=== PATIENT | female | born 1955 | race Caucasian/White ===

== ENCOUNTER → 2021-01-15 | Outpatient (CLI) | payer MEDICARE ==
[~2021-01-15] MED LIST: ADVIL200 MG PO; NORCO 325 MG-51 TAB PO; TRUSOPT OCUMETE10 ML OD; XALATAN EYE DROPS OU
== END ==
LOC: MC.RAD 07:00
DX: N63.10 Unspecified lump in the right breast, unspecified quadrant (principal); Q85.00 Neurofibromatosis, unspecified

== ENCOUNTER → 2021-01-30 | Outpatient (CLI) | payer MEDICARE | LOC: MC.RAD 12:43 | DX: N63.10 Unspecified lump in the right breast, unspecified quadrant (principal) ==

== ENCOUNTER 2021-03-26 07:26 | Day surgery (SDC) | payer MEDICARE ==
[~2021-03-26] VITALS: Ht 165.1 cm; Wt 86.8 kg
[2021-03-26 07:55] VITALS: BP 134/69; PULSE 57; TEMP 97.9
[2021-03-26] MEDS ORDERED: TRUSOPT OCUMETE10 ML OD (07:57)
[2021-03-26] MEDS ORDERED: ADVIL200 MG PO (08:00)
[2021-03-26] MEDS ORDERED: XALATAN EYE DROPS OU (08:00)
[2021-03-26 10:26] VITALS: BP 139/76; PULSE 77
--- NOTE | 2021-03-26 10:26 | NUR ---
Patient returns to room 2 per cart from surgery accompanied by Jose G SILVA and Aaron RN. Patient arouses to verbal stimuli. Bandaid on right side of neck dry and gauze dressing covering port site dry and area soft and flat. IV fluids. Call light in reach. Siderails up x2 and daughter in room.
[2021-03-26] MEDS ORDERED: NORCO 325 MG-51 TAB PO (10:31)
[2021-03-26 10:41] VITALS: BP 130/73; PULSE 68
--- NOTE | 2021-03-26 10:41 | NUR ---
Awake and assisted up to the bathroom. Voids and returns to room. Tolerated activity well.
[2021-03-26 10:56] VITALS: BP 143/62; PULSE 63
--- NOTE | 2021-03-26 10:56 | NUR ---
Eating muffin and drinking coffee. States that the port a catheter insertion site is sore.
--- NOTE | 2021-03-26 11:05 | NUR ---
IV to INT. Again up to the bathroom. Voids and returns to room.
--- NOTE | 2021-03-26 11:10 | NUR ---
Medicated with [place] 5mg one tab for discomfort. Dresses self. Denies nausea.
--- NOTE | 2021-03-26 11:29 | NUR ---
Dismissal instructions given and voices understanding of these. Provided port a catheter information packet.
--- NOTE | 2021-03-26 11:31 | NUR ---
Patient dismissed to home driven by family member and taken to the vehicle per wheelchair and assisted into car with all dismissal instructions in hand.
== END 2021-03-26 11:31 | disposition home or self-care (01) ==
LOC: SDCO 07:26
DX: C50.411 Malignant neoplasm of upper-outer quadrant of right female breast (principal); C50.112 Malignant neoplasm of central portion of left female breast; M19.90 Unspecified osteoarthritis, unspecified site; J40 Bronchitis, not specified as acute or chronic; Z45.2 Encounter for adjustment and management of vascular access device; Z79.899 Other long term (current) drug therapy; Z90.710 Acquired absence of both cervix and uterus; Z87.891 Personal history of nicotine dependence; Z90.89 Acquired absence of other organs; Z80.9 Family history of malignant neoplasm, unspecified; Z82.49 Family history of ischemic heart disease and other diseases of the circulatory system; Z82.3 Family history of stroke
CPT/HCPCS: C1788; J0690; J2250; J2704; J7120